=== PATIENT | female | born 1965 ===

== ENCOUNTER 2017-11-09 21:35 | Emergency (ER) | payer MEDICAID ==
--- NOTE | 2017-11-10 00:19 | ED PDOC ---
HPI: General Adult Time Seen by Provider: 11/09/17 23:48 Chief Complaint (Nursing): ENT Problem Chief Complaint (Provider): swallowed FB History Per: Patient History/Exam Limitations: no limitations Onset/Duration Of Symptoms: Hrs (3) Current Symptoms Are (Timing): Still Present Additional Complaint(s): 52 y/o female presents for evaluation of swallowing foreign body x 3 hours. Patient states she was eating a steak burrito bowl from [employer] and when she swallowed a mouthful she felt immediate sharp pain to the right side of her throat and felt something get lodged there, patient states she tried making herself throw up without success and then eventually felt the piece move down in to her stomach within 10 minutes. Patient now notes abdominal bloating and feels whatever she swallowed to be moving around her stomach. Denies fever, nausea/vomiting, difficulty speaking/swallowing, chest pain, shortness of breath , palpitations, changes in bowel movements. Past Medical History Reviewed: Historical Data, Nursing Documentation, Vital Signs Vital Signs: Last Vital Signs Temp 98.4 F 11/10/17 04:45 Pulse 81 11/10/17 04:45 Resp 18 11/10/17 04:45 BP 128/72 11/10/17 04:45 Pulse Ox 100 11/10/17 04:45 - Medical History PMH: No Chronic Diseases - Surgical History Surgical History: No Surg Hx - Family History Family History: States: No Known Family Hx - Living Arrangements Living Arrangements: With Family - Allergies Allergies/Adverse Reactions: Allergies Allergy/AdvReac Type Severity Reaction Status Date / Time No Known Allergies Allergy Verified 11/09/17 22:01 Review of Systems ROS Statement: Except As Marked, All Systems Reviewed And Found Negative Gastrointestinal: Positive for: Abdominal Pain Physical Exam - Reviewed Nursing Documentation Reviewed: Yes Vital Signs Reviewed: Yes - Physical Exam Appears: Positive for: Well, Non-toxic, No Acute Distress Head Exam: Positive for: ATRAUMATIC, NORMAL INSPECTION, NORMOCEPHALIC Skin: Positive for: Normal Color Eye Exam: Positive for: Normal appearance ENT: Positive for: Normal ENT Inspection Cardiovascular/Chest: Positive for: Regular Rate, Rhythm Respiratory: Positive for: Normal Breath Sounds Gastrointestinal/Abdominal: Positive for: Bowel Sounds, Soft, Tenderness ( epigastric discomfort), Distended Back: Positive for: Normal Inspection Extremity: Positive for: Normal ROM Neurologic/Psych: Positive for: Alert, Oriented - Laboratory Results Result Diagrams: 11/10/17 01:55 11/10/17 01:55 - ECG O2 Sat by Pulse Oximetry: 99 - Progress ED Course And Treament: chest/abdomen xray Patient evaluated by ED attending Dr. Reyes; will order CT abd/pelvis for further eval EXAM: CT Abdomen and Pelvis With Intravenous Contrast CLINICAL HISTORY: 52 years old, female; Pain; Abdominal pain; Generalized; Prior surgery; Surgery date: 6+ months; Surgery type: Tubal ligation; Additional info: Abdominal distention after swallowing foreign body TECHNIQUE: Axial computed tomography images of the abdomen and pelvis with intravenous contrast. All CT scans at this facility use one or more dose reduction techniques, viz.: automated exposure control; ma/kV adjustment per patient size (including targeted exams where dose is matched to indication; i.e. head); or iterative reconstruction technique. Coronal and sagittal reformatted images were created and reviewed. CONTRAST: 90 mL of [id number] administered intravenously. COMPARISON: No relevant prior studies available. FINDINGS: Lung bases: Minimal atelectasis/scarring. RML calcified granuloma. Heart: Small focal pericardial effusion. ABDOMEN: Liver: Fatty infiltration. Gallbladder and bile ducts: Calcified gallstone. No significant ductal dilation. Pancreas: No ductal dilation. No mass. Spleen: No splenomegaly. Adrenals: No mass. Kidneys and ureters: Few too small to characterize lesions within kidneys. No hydronephrosis. Stomach and bowel: No definite mural thickening. No obstruction. PELVIS: Appendix: Normal caliber. No inflammation. Bladder: Unremarkable. Reproductive: 1.8 x 1.7 x 2.0 cm peripherally enhancing hypodensity with crenulated margins within LEFT ovary. ABDOMEN and PELVIS: Intraperitoneal space: Trace free fluid within pelvis. No free air. Bones/joints: Mild scoliosis. No acute fracture. Soft tissues: Tiny umbilical hernia containing fat. Vasculature: Unremarkable. No aneurysm. Lymph nodes: No pathologically enlarged lymph nodes. IMPRESSION: 1. Involuting or ruptured LEFT ovarian follicle/cyst. 2. Incidental/non-acute findings are described above Patient educated on findings, discharged with instructions to follow up PMD/GI. Advised trial simethicone OTC for bloating Return precautions given Disposition - Clinical Impression Clinical Impression: Abdominal bloating, Sensation of foreign body - Patient ED Disposition Is Patient to be Admitted: No Counseled Patient/Family Regarding: Studies Performed, Diagnosis, Need For Followup - Disposition Referrals: Randa Cueva MD [Medical Doctor] - Disposition: Routine/Home Disposition Time: 05:20 Condition: IMPROVED Instructions: Gas and Bloating, Foreign Body, Swallowed, Adult Forms: [facility] (Vietnamese)
[2017-11-10] MEDS ORDERED: Iohexol 240 (50 ml) PO ONE (01:19)
[2017-11-10 01:59] LABS: BASO # 0.1 K/uL (0.0-0.2); BASO % 0.9 % (0.0-2.0); EOS # 0.4 K/uL (0.0-0.7); HEMOGLOBIN 13.9 g/dL (12.0-16.0); LYMPH # 3.2 K/uL (1.0-4.3); LYMPH % 33.7 % (20.0-40.0); MEAN CELL VOLUME 92.2 fl (81.0-99.0); MEAN CORPUSCULAR HEMOGLOBIN 31.7 pg (27.0-31.0); MEAN CORPUSCULAR HGB CONC 34.4 g/dL (33.0-37.0); MONO # 0.6 K/uL (0.0-0.8); MONO % 6.5 % (0.0-10.0); NEUT # 5.1 K/uL (1.8-7.0); NEUT % 54.9 % (50.0-75.0); RBC 4.37 Mil/uL (3.80-5.20); RED CELL DISTRIBUTION WIDTH 13.2 % (11.5-14.5); WHITE BLOOD COUNT 9.4 K/uL (4.8-10.8)
[2017-11-10 02:13] LABS: ALB/GLOB RATIO 1.3 (1.0-2.1); ALBUMIN 4.4 g/dL (3.5-5.0); ALT/SGPT 57 U/L (9-52); AST/SGOT 35 U/L (14-36); BLOOD UREA NITROGEN 21 mg/dl (7-17); CALCIUM 9.7 mg/dL (8.4-10.2); GFR AFRICAN-AMERICAN > 60; GFR NON-AFRICAN AMERICAN > 60
[2017-11-10] MEDS ORDERED: Iohexol 300 100 ML IJ ONE (03:24)
[2017-11-10] MEDS ORDERED: Sodium Chloride 0.9% 100 ML ONE (03:25)
--- NOTE | 2017-11-10 04:28 | CT ---
EXAM: CT Abdomen and Pelvis With Intravenous Contrast CLINICAL HISTORY: 52 years old, female; Pain; Abdominal pain; Generalized; Prior surgery; Surgery date: 6+ months; Surgery type: Tubal ligation; Additional info: Abdominal distention after swallowing foreign body TECHNIQUE: Axial computed tomography images of the abdomen and pelvis with intravenous contrast. All CT scans at this facility use one or more dose reduction techniques, viz.: automated exposure control; ma/kV adjustment per patient size (including targeted exams where dose is matched to indication; i.e. head); or iterative reconstruction technique. Coronal and sagittal reformatted images were created and reviewed. CONTRAST: 90 mL of [id number] administered intravenously. COMPARISON: No relevant prior studies available. FINDINGS: Lung bases: Minimal atelectasis/scarring. RML calcified granuloma. Heart: Small focal pericardial effusion. ABDOMEN: Liver: Fatty infiltration. Gallbladder and bile ducts: Calcified gallstone. No significant ductal dilation. Pancreas: No ductal dilation. No mass. Spleen: No splenomegaly. Adrenals: No mass. Kidneys and ureters: Few too small to characterize lesions within kidneys. No hydronephrosis. Stomach and bowel: No definite mural thickening. No obstruction. PELVIS: Appendix: Normal caliber. No inflammation. Bladder: Unremarkable. Reproductive: 1.8 x 1.7 x 2.0 cm peripherally enhancing hypodensity with crenulated margins within LEFT ovary. ABDOMEN and PELVIS: Intraperitoneal space: Trace free fluid within pelvis. No free air. Bones/joints: Mild scoliosis. No acute fracture. Soft tissues: Tiny umbilical hernia containing fat. Vasculature: Unremarkable. No aneurysm. Lymph nodes: No pathologically enlarged lymph nodes. IMPRESSION: 1. Involuting or ruptured LEFT ovarian follicle/cyst. 2. Incidental/non-acute findings are described above.
[2017-11-10] MEDS ORDERED: Simethicone 80 mg Chewtab PO STA (04:41)
[2017-11-10 04:46] VITALS: TEMP 98.4
[2017-11-10 07:10] VITALS: BP 125/85; PULSE 71; RESP 16; O2SAT 100
--- NOTE | 2017-11-10 09:28 | RAD ---
PROCEDURE: CHEST RADIOGRAPH, 1 VIEW HISTORY: swallowed FB COMPARISON: None available. FINDINGS: LUNGS: Clear. PLEURA: No pneumothorax or pleural fluid seen. CARDIOVASCULAR: Normal. OSSEOUS STRUCTURES: No significant abnormalities. VISUALIZED UPPER ABDOMEN: Normal. OTHER FINDINGS: No radiopaque foreign body. IMPRESSION: No active disease. No radiopaque foreign body.
--- NOTE | 2017-11-10 09:29 | RAD ---
HISTORY: swallowed FB, abdomen bloating COMPARISON: No prior. FINDINGS: BOWEL: Nonspecific bowel gas pattern. BONES: Normal. OTHER FINDINGS: No radiopaque foreign body. IMPRESSION: No radiopaque foreign body.
== END 2017-11-10 05:30 | disposition home or self-care (01) ==
LOC: H.ER 21:35
DX: R14.0 Abdominal distension (gaseous) (principal); R09.89 Other specified symptoms and signs involving the circulatory and respiratory systems
CPT/HCPCS: 71045; 74018; 74177; 80053; 81025; 85025; 99284; Q9966; Q9967